=== PATIENT | female | born 1950 | race Caucasian/White ===

== ENCOUNTER → 2017-06-08 | Outpatient (CLI) | payer MEDICARE ==
[~2017-06-08] MED LIST: ASPIR 8181 MG PO; ATELVIA35 MG PO; AZOR 5-40 MG T1 EACH PO; CENTRUM SILVER1 EAC1 PO; CYMBALTA60 MG PO; DICYCLOMINE HCL10 MG PO; DICYCLOMINE HCL20 MG PO; FLORASTOR250 MG PO; HYDROCODON-ACE1 EA12 PO; KEFLEX500 MG PO; LEVOTHYROXINE175 MCG PO; LORAZEPAM0.5 MG PO; METOCLOPRAMIDE10 MG PO; NEXIUM40 MG PO; NORCO 7.5-3251 EACH PO; PANTOPRAZOLE SO40 MG PO; PHENERGAN25 MG/1 ML PO; PRAVASTATIN SOD40 MG PO; PREMARIN0.625 MG PO; REGLAN10 MG PO; ROPINIROLE HC0.25 MG PO; SYNTHROID125 MCG PO; SYNTHROID88 MCG PO; VANCOCIN HCL250 MG PO
--- NOTE | 2017-06-08 16:40 | Diagnostic Imaging Report ---
PROCEDURE:US RETROPERITONEAL ( KIDNEY ). COMPARISON:CT abdomen and pelvis 02/24/2016. INDICATIONS:Cyst Of Kidney TECHNIQUE: Page-scale and color sonographic images of the bilateral kidneys and bladder where obtained in transverse and longitudinal planes. FINDINGS: RIGHT KIDNEY: 8.6 x 5.0 x 5.6 cm, cortex 2.2 cm Cysts: None Solid masses: None Stones: None Hydronephrosis: None Echogenicity: None. LEFT KIDNEY: 9.5 x 5.0 x 4.3 cm, cortex 1.8 cm Cysts: None Solid masses: None Stones: None Hydronephrosis: None Echogenicity: None. Bladder: Normal. CONCLUSION: Normal kidneys. No cysts identified. Dictated by: Arturo Rutledge M.D. on 06/08/2017 at 16:48 Electronically approved by: Arturo Rutledge M.D. on 06/08/2017 at 16:48
== END ==
LOC: US 15:53
PROVIDERS: ATTEND Urology
DX: N28.1 Cyst of kidney, acquired (principal)
CPT/HCPCS: 76770

== ENCOUNTER 2018-12-03 13:47 | Emergency (ER) | payer MEDICARE ==
[~2018-12-03] VITALS: Ht 152.4 cm; Wt 65.3 kg
--- OUTSIDE RECORDS SUMMARY | 2018-12-03 13:53 | XMS REPORT | Summary of Care ---
Author Author Kiya Walker M.A. Unknown Address [facility] Phone Unavailable Care Team Providers Care Behavioral Technician Name Role Phone SCOTT GAYTAN M.D. 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, right (733.82, S82.041K) Status: Active Closed displaced comminuted fracture of right patella, initial encounter (822.0, S82.041A) Status: Active Medications Name Dates Details Medications not documented Allergies and Adverse Reactions Name Dates Details Allergy history not documented Status: Procedures Procedure Dates Details [U] XRAY KNEE 1 OR 2 VWS RIGHT [id number] Date: 15-Sep-2018 Immunization Name Dates Details Immunizations not documented Social History Name Dates Details Unknown if ever smoked Vital Signs Date Test Result Details No Known Vitals to report Results Date Description Value Details Results not documented Plan of Care Name Dates Details Planned Observations Planned Goals not documented Planned Encounters Appointment; SCOTT GAYTAN M.D. On: 20-Dec-2018 11:15 Interventions Provided Labs/Procedures/Imaging* [U] XRAY KNEE 1 OR 2 VWS RIGHT [id number]; To Be Done: 20 Sep 2018 Supplies* Handicap Parking; To Be Done: 20 Sep 2018 Instructions Name Dates Details Instructions not documented Encounters Appointment; SCOTT GAYTAN M.D. Encounter Diagnosis: Problem not documented On: 16-Nov-2017 9:30 Appointment; SCOTT GAYTAN M.D. Encounter Diagnosis: Problem not documented On: 21-Nov-2017 7:00 Appointment; SCOTT GAYTAN M.D. Encounter Diagnosis: Problem not documented On: 05-Dec-2017 9:00 Appointment; SCOTT GAYTAN M.D. Encounter Diagnosis: Problem not documented On: 21-Dec-2017 12:15 Appointment; SCOTT GAYTAN M.D. Encounter Diagnosis: Problem not documented On: 28-Dec-2017 12:30 Appointment; SCOTT GAYTAN M.D. Encounter Diagnosis: Problem not documented On: 11-Jan-2018 10:00 Appointment; SCOTT GAYTAN M.D. Encounter Diagnosis: Problem not documented On: 25-Jan-2018 12:45 Appointment; SCOTT GAYTAN M.D. Encounter Diagnosis: Problem not documented On: 08-Feb-2018 12:45 Appointment; SCOTT GAYTAN M.D. Encounter Diagnosis: Problem not documented On: 08-Mar-2018 11:30 Appointment; SCOTT GAYTAN M.D. Encounter Diagnosis: Problem not documented On: 19-Apr-2018 11:30 Appointment; SCOTT GAYTAN M.D. Encounter Diagnosis: Problem not documented On: 20-Jun-2018 11:15 Appointment; SCOTT GAYTAN M.D. Encounter Diagnosis: Problem not documented On: 20-Sep-2018 11:15
--- OUTSIDE RECORDS SUMMARY | 2018-12-03 13:53 | XMS REPORT ---
Author Author [facility] Address Unknown Phone Unavailable Care Team Providers Care Control Clerk Auditing Name Role Phone MARIA D RITTER Unavailable Unavailable Payers Payer Name Policy Type Policy Number Effective Date Expiration Date Problems This patient has no known problems. Allergies, Adverse Reactions, Alerts Allergy Name Allergy Type Status Severity Reaction(s) Onset Date Inactive Date Treating Clinician Comments cefazolin DA Active 2017-10-01 00:00:00 iodine DA Active SV 2017-09-27 00:00:00 codeine DA Active SV 2017-09-27 00:00:00 metronidazole DA Active SV 2017-09-27 00:00:00 levofloxacin DA Active SV 2017-09-27 00:00:00 Medications This patient has no known medications. Results Test Description Test Time Test Comments Text Results Atomic Results Result Comments US RENAL RETROPERITONEAL COMP [place] [address] Patient Name: GIL VICENTE MR #: [id number] : 1950 Age/Sex: 67/F Req #: [id number] Adm Physician: Ordered by: MARIA D RITTER MD Report #: [id number] Location: US Room/Bed: Procedure: [id number] US/US RENAL RETROPERITONEAL COMP Exam Date: 06/08/17 Exam Time: 1614 REPORT STATUS: Signed PROCEDURE: US RETROPERITONEAL ( KIDNEY ). COMPARISON: CT abdomen and pelvis 02/24/2016. INDICATIONS: Cyst Of Kidney TECHNIQUE: Page-scale and color sonographic images of the bilateral kidneys and bladder where obtained in transverse and longitudinal planes. FINDINGS: RIGHT KIDNEY: 8.6 x 5.0 x 5.6 cm, cortex 2.2 cm Cysts: None Solid masses: None Stones: None Hydronephrosis: None Echogenicity: None. LEFT KIDNEY: 9.5 x 5.0 x 4.3 cm, cortex 1.8 cm Cysts: None Solid masses: None Stones: None Hydronephrosis: None Echogenicity: None. Bladder: Normal. CONCLUSION: Normal kidneys. No cysts identified. Dictated by: Hemant Gonzalez M.D. on 06/08/2017 at 16:48 Electronically approved by: Hemant Gonzalez M.D. on 06/08/2017 at 16:48 Dictated By: HEMANT GONZALEZ MD [id number] Transcribed By: EMILIANO on 06/08/17 [id number] COPY TO: MARIA D RITTER MD
[2018-12-03 15:04] VITALS: BP 135/73
== END 2018-12-03 15:16 | disposition home or self-care (01) ==
LOC: ER 13:47
DX: L03.115 Cellulitis of right lower limb (principal); S40.812A Abrasion of left upper arm, initial encounter; S40.811A Abrasion of right upper arm, initial encounter; S50.812A Abrasion of left forearm, initial encounter; S50.811A Abrasion of right forearm, initial encounter; S80.812A Abrasion, left lower leg, initial encounter; X58.XXXA Exposure to other specified factors, initial encounter; Y93.K9 Activity, other involving animal care; Y92.008 Other place in unspecified non-institutional (private) residence as the place of occurrence of the external cause
CPT/HCPCS: 99282

== ENCOUNTER 2019-01-03 21:09 | Inpatient (IN) | payer MEDICARE, OTHER ==
[~2019-01-03] VITALS: Ht 157.5 cm; Wt 62.6 kg
--- OUTSIDE RECORDS SUMMARY | 2019-01-03 21:14 | XMS REPORT | Continuity of Care Document ---
Author Author [facility] Address Unknown Phone Unavailable Care Team Providers Care Link Trainer Maintenance Worker Name Role Phone [facility] Information Exchange Unavailable Unavailable Problems Problem Status Onset Date Classification Date Reported Comments Source Colitis Active 06/01/2014 Problem 12/03/2018 [facility] Vomiting Active 06/01/2014 Problem 12/03/2018 [facility] Abdominal pain Active Problem 12/03/2018 [facility] Diarrhea Active Problem 12/03/2018 [facility] Renal insufficiency Active Problem 12/03/2018 [facility] Medications Medication Details Route Status Patient Instructions Ordering Provider Order Date Source Metoclopramide Hcl (Reglan) 10 Mg Tablet, 10 Mg Oral 5 Times Daily Active 05/20/2016 [facility] Dicyclomine Hcl 10 Mg Capsule, 10 Mg Oral Every 6 Hours Active 10/01/2015 [facility] Levothyroxine Sodium (Synthroid) 125 Mcg Tab, 125 Mcg Oral Today At 6:30AM Active 10/01/2015 [facility] Multivitamin W-Minerals/Lutein (Centrum Silver Tablet) 1 Each Tablet, Oral Daily Active 10/01/2015 [facility] Aspirin (Aspir 81) 81 Mg Tablet., 81 Mg Oral Daily Active 09/08/2015 [facility] Dicyclomine Hcl 20 Mg Tablet, 20 Mg Oral Four Times Daily Active 09/08/2015 [facility] Esomeprazole Magnesium (Nexium) 40 Mg Capsule., 40 Mg Oral Twice A Day Active 09/08/2015 [facility] Levothyroxine Sodium 175 Mcg Tablet, 175 Mcg Oral Daily Active 09/08/2015 [facility] Promethazine Hcl (Phenergan) 25 Mg/1 Ml Ampul Every 6 Hours as needed for Po Active Zabala 06/06/2014 [facility] Metoclopramide Hcl 10 Mg Tablet, 10 Mg Oral Before Meals And At Bedtime for Abdominal Pain Active Zabala 06/06/2014 [facility] Vancomycin Hcl (Vancocin Hcl) 250 Mg Capsule, 250 Mg Oral Four Times Daily Active Zabala 06/06/2014 [facility] Cephalexin Monohydrate (Keflex) 500 Mg Capsule, 500 Mg Oral Three Times A Day Active 05/31/2014 [facility] Hydrocodone Bit/Acetaminophen (Hydrocodon-Acetaminoph 7.5-325) 1 Each Tablet, 1 Tab Oral Every 4 Hours as needed for Pain Active 05/31/2014 [facility] Levothyroxine Sodium (Synthroid) 125 Mcg Tab, 125 Mcg Oral Mon-Sat Active 05/31/2014 [facility] Unknown , Active 07/12/2013 [facility] Amlodipine Bes/Olmesartan Med (Vernon 5-40 Mg Tablet) 1 Each Tablet Bedtime Active [facility] Dicyclomine Hcl 20 Mg Tablet Every 6 Hours Active [facility] Duloxetine Hcl (Cymbalta) 60 Mg Capsule.dr Deluca Active [facility] Estrogens Conjugated (Premarin) 0.625 Mg Tab Daily Active [facility] Hydrocodone Bit/Acetaminophen (Marshall 7.5-325 Tablet) 1 Each Tablet Every 6 Hours Active [facility] Levothyroxine Sodium (Synthroid) 88 Mcg Tablet Daily Active [facility] Lorazepam 0.5 Mg Tablet Every 6 Hours Active [facility] Pantoprazole Sodium (Protonix) 40 Mg Tablet. Twice A Day Active [facility] Pravastatin Sodium 40 Mg Tablet Daily Active [facility] Risedronate Sodium (Atelvia) 35 Mg Tablet.dr Park Active [facility] Ropinirole Hcl 0.25 Mg Tablet Twice A Day Active [facility] Saccharomyces Boulardii (Florastor) 250 Mg Capsule Daily Active [facility] Allergies, Adverse Reactions, Alerts Substance Category Reaction Severity Reaction type Status Date Reported Comments Source iodine HIVES Unknown Allergy to Substance Active 05/19/2016 [facility] Triazolam HIVES Unknown Allergy to Substance Active 05/19/2016 [facility] Codeine HIVES Mild Allergy to Substance Active 05/19/2016 [facility] Metronidazole HIVES Unknown Allergy to Substance Active 05/19/2016 [facility] Levofloxacin HIVES Severe Allergy to Substance Active 05/19/2016 [facility] Immunizations No Data Provided for This Section Results No Data Provided for This Section Pathology Reports No Data Provided for This Section Diagnostic Reports No Data Provided for This Section Consultation Notes No Data Provided for This Section Discharge Summaries No Data Provided for This Section History and Physicals No Data Provided for This Section Vital Signs No Data Provided for This Section Encounters Location Location Details Encounter Type Encounter Number Reason For Visit Attending Provider ADM Date DC Date Status Source Departed Emergency Room [id number] HERMINIO SWANSON MD 12/03/2018 12/03/2018 [facility] Procedures No Data Provided for This Section Assessment and Plan No Data Provided for This Section Plan of Care Plan of Care Date Source Discharge Date 12/03/18 3:16pm Disposition HOME, SELF-CARE Condition at Discharge Stable Instructions/Education Provided Abrasion Cellulitis Forms Provided Work/School Excuse Prescriptions See Medication Section Referrals CEDRICK ZABALA MD Address: [address] [place] [id number] Additional Instructions/Education 1- Keep all wounds clean and dry 2- May place antibiotic ointment (OTC) to wounds 2 times a day- do not cover 3- Take medication as directed 4- Follow up with Dr Burkett tomorrow 5- Return for any concerns 12/03/2018 [facility] Social History Social History Date Source Social History Problem Response Recorded Date/Time Onset Date Status Hx Psychiatric Problems Yes 06/01/2014 8:36am Not Applicable Not Applicable Hx Eating Disorder No 06/01/2014 8:36am Not Applicable Not Applicable Hx Substance Use Disorder No 06/01/2014 8:36am Not Applicable Not Applicable Hx Depression Yes 06/01/2014 8:36am Not Applicable Not Applicable Hx Alcohol Use No 06/01/2014 8:36am Not Applicable Not Applicable Hx Substance Use Treatment No 06/01/2014 8:36am Not Applicable Not Applicable Hx Physical Abuse No 06/01/2014 8:36am Not Applicable Not Applicable 12/03/2018 [facility] Family History No Data Provided for This Section Advance Directives Order Name Results Value Date Source Advance Directives Advance Directives Directive Response Recorded Date/Time Does the patient have an advance directive? Yes 06/08/17 3:53pm If yes, is advance directive on file with [facility]? No 06/01/14 8:36am If not on file with [facility] will patient provide a copy? Yes 06/08/17 3:53pm Did patient receive Notice of Privacy Practices? Yes 07/13/10 8:01am Did patient receive patient rights and responsibilities? Yes 07/13/10 8:01am 12/03/2018 [facility] Functional Status No Data Provided for This Section
--- OUTSIDE RECORDS SUMMARY | 2019-01-03 21:14 | XMS REPORT | Summary of Care ---
Author Beatrice Tsang Organization Unknown Address [facility] Phone Unavailable Care Team Providers Care Managed Care Liaison Name Role Phone SCOTT GAYTAN M.D. Unavailable [...] XRAY KNEE 1 OR 2 VWS RIGHT [id number] Date: 21-Dec-2018 Immunization Name Dates Details Immunizations not documented Social History Name Dates Details Unknown if ever smoked Vital Signs Date Test Result Details No Known Vitals to report Results Date Description Value Details Results not documented Plan of Care Name Dates Details Planned Observations Planned Goals not documented Planned Encounters Appointment; SCOTT GAYTAN M.D. On: 27-Dec-2018 13:30 Interventions Provided Labs/Procedures/Imaging* [U] XRAY KNEE 1 OR 2 VWS RIGHT [id number]; To Be Done: 27 Dec 2018 Instructions Name Dates Details Instructions not [...] Diagnosis: Problem not documented On: 20-Sep-2018 11:15 Appointment; SCOTT GAYTAN M.D. Encounter Diagnosis: Problem not documented On: 27-Dec-2018 13:30
[2019-01-03] MEDS ORDERED: SODIUM CHLORIDE 0.9% 1000ML 1,000 ML IV STA (21:45)
[2019-01-03] MEDS ORDERED: ONDANSETRON HCL INJ 2MG/ML 2ML 2 MG/ML VIAL IV PRN (21:45)
--- NOTE | 2019-01-03 22:50 | Diagnostic Imaging Report ---
EXAMINATION: Head CT without contrast. HISTORY:Altered mental status, fall, dizziness. COMPARISON:Report of CT brain from 11/19/2010, prior images not available for comparison at the time of interpretation. TECHNIQUE: Multidetector axial images were obtained from the foramen magnum to the vertex without contrast. The images were reconstructed using brain and bone algorithms. Thin section brain images were reformatted into coronal and sagittal planes. Dose modulation, iterative reconstruction, and/or weight based adjustment of the mA/kV was utilized to reduce the radiation dose to as low as reasonably achievable. Intravenous contrast: None IMAGE QUALITY: Suboptimal evaluation particularly at the level of skull base and posterior fossa structures due to streak artifacts. FINDINGS: Skull/scalp: No lytic or blastic. lesions. No surgical changes. Parenchyma: Nonspecific few, scattered supratentorial white matter hypodensity are likely related to small vessel ischemic changes. No acute hemorrhage, mass or acute major vascular territorial infarct. Arteries: No density suggestive of thrombosis. Dural sinuses: No abnormal density suggestive of thrombosis. Ventricles: No hydrocephalus or displacement. Extra-axial spaces: No abnormal density. Brain volume: Normal for age. Craniocervical junction: No mass, Chiari malformation, or basilar invagination. Sella: No mass. Paranasal/mastoid sinuses: Imaged portions unremarkable. IMPRESSION: No acute intracranial abnormality. Mild supratentorial white matter microvascular ischemic changes. Signed by: Dr. Stephanie Camargo M.D. on 01/03/2019 10:47 PM
[2019-01-03 22:52] LABS: BASOPHILS # (AUTO) 0.1 (0.0-0.1); BASOPHILS % 0.6 % (0.0-1.0); EOSINOPHILS # (AUTO) 0.1 (0.0-0.4); EOSINOPHILS % 1.3 % (0.0-6.0); HEMATOCRIT 34.1 % (34.2-44.1); HEMOGLOBIN 11.6 g/dL (12.0-16.0); LYMPHOCYTES # (AUTO) 1.9 (1.0-3.2); LYMPHOCYTES % 19.1 % (18.0-39.1); MEAN CORPUSCULAR HEMOGLOBIN 31.4 pg (28-32); MEAN CORPUSCULAR VOLUME 92.4 fL (81-99); MONOCYTES # (AUTO) 0.8 (0.2-0.8); MONOCYTES % 8.5 % (4.4-11.3); NEUTROPHILS # (AUTO) 6.9 (2.1-6.9); NEUTROPHILS % 70.2 % (38.7-80.0); PLATELET COUNT 194 x10e3/uL (140-360); RED BLOOD COUNT 3.69 x10e6/uL (3.6-5.1)
[2019-01-03 23:19] LABS: ALBUMIN 3.9 g/dL (3.5-5.0); ALBUMIN/GLOBULIN RATIO 1.3 (0.8-2.0); ANION GAP 18.7 mmol/L (8-16); CALCIUM 9.4 mg/dL (8.4-10.2); CREATININE, SERUM 3.06 mg/dL (0.57-1.11); POTASSIUM 3.7 mmol/L (3.5-5.1)
[2019-01-03 23:23] LABS: BILIRUBIN,URINE NEGATIVE (NEGATIVE); CLARITY,URINE CLEAR (CLEAR); COLOR,URINE YELLOW (YELLOW); KETONES,URINE NEGATIVE (NEGATIVE); LEUKOCYTE ESTERASE ,URINE NEGATIVE (NEGATIVE); NITRITE,URINE NEGATIVE (NEGATIVE); PROTEIN,URINE DIPSTICK NEGATIVE (NEGATIVE); URINE UROBILINOGEN 0.2 mg/dL (0.2 - 1)
[2019-01-03 23:25] LABS: CREATINE KINASE MB 12.4 ng/mL (0-5.0)
[2019-01-03 23:37] LABS: BACTERIA,URINE FEW /HPF; RBC,URINE 0-5 /HPF (0-5)
[2019-01-03 23:38] LABS: EPITHELIAL CELLS,URINE FEW /LPF
[2019-01-03 23:39] LABS: MUCUS,URINE FEW (RARE)
[2019-01-04] MEDS ORDERED: SODIUM CHLORIDE 0.9% 1000ML 1,000 ML IV SCH (00:04)
[2019-01-04] MEDS ORDERED: CLONIDINE HCL 0.1 MG TAB PO PRN (00:15)
[2019-01-04] MEDS ORDERED: HYDRALAZINE HCL 20 MG/ML VIAL IV PRN (00:15)
[2019-01-04] MEDS ORDERED: ACETAMINOPHEN 325 MG TAB PO PRN (00:15)
--- NOTE | 2019-01-04 00:28 | Diagnostic Imaging Report ---
EXAMINATION: CHEST SINGLE (PORTABLE) INDICATION: Chest pain COMPARISON: None FINDINGS: AP view TUBES and LINES: None. LUNGS: Right hemidiaphragm eventration. Bibasilar opacities are likely atelectasis. PLEURA: No pleural effusion or pneumothorax. HEART AND MEDIASTINUM: The cardiomediastinal silhouette is unremarkable. BONES AND SOFT TISSUES: No acute osseous lesion. Soft tissues are unremarkable. UPPER ABDOMEN: No free air under the diaphragm. IMPRESSION: No acute thoracic abnormality. Normal heart size. Right hemidiaphragm eventration and bibasilar atelectasis. Signed by: Lazaro Marsh DO on 01/04/2019 12:24 AM
[2019-01-04] MEDS: LACTATED RINGER'S 1,000 ML IV SCH ×4 (00:30→23:12)
--- OUTSIDE RECORDS SUMMARY | 2019-01-04 00:51 | XMS REPORT | Continuity of Care Document ---
Author Author [facility] [employer] [facility] Address Unknown Phone Unavailable Care Team Providers Care Network Planner Name Role Phone [facility] Information Exchange Unavailable Unavailable Problems Problem Status Onset Date Classification Date Reported Comments Source Colitis Active 06/01/2014 Problem 12/03/2018 [facility] Vomiting Active 06/01/2014 Problem 12/03/2018 [facility] Abdominal pain Active Problem 12/03/2018 [facility] Diarrhea Active Problem 12/03/2018 [facility] Renal insufficiency Active Problem 12/03/2018 [facility] Medications Medication Details Route Status Patient Instructions Ordering Provider Order Date Source Metoclopramide Hcl (Reglan) 10 Mg Tablet, 10 Mg Oral 5 Times Daily Active 05/20/2016 [facility] Dicyclomine Hcl 10 Mg Capsule, 10 Mg Oral Every 6 Hours Active 10/01/2015 [facility] Levothyroxine Sodium (Synthroid) 125 Mcg Tab, 125 Mcg Oral Today At 6:30AM Active 10/01/2015 [facility] Multivitamin W-Minerals/Lutein (Centrum Silver Tablet) 1 Each Tablet, Oral Daily Active 10/01/2015 [facility] Aspirin (Aspir 81) 81 Mg Tablet., 81 Mg Oral Daily Active 09/08/2015 [facility] Dicyclomine Hcl 20 Mg Tablet, 20 Mg Oral Four Times Daily Active 09/08/2015 [facility] Esomeprazole Magnesium (Nexium) 40 Mg Capsule., 40 Mg Oral Twice A Day Active 09/08/2015 [facility] Levothyroxine Sodium 175 Mcg Tablet, 175 Mcg Oral Daily Active 09/08/2015 [facility] Promethazine Hcl (Phenergan) 25 Mg/1 Ml Ampul Every 6 Hours as needed for Po Active Zabala 06/06/2014 [facility] Metoclopramide Hcl 10 Mg Tablet, 10 Mg Oral Before Meals And At Bedtime for Abdominal Pain Active Zabala 06/06/2014 [facility] Vancomycin Hcl (Vancocin Hcl) 250 Mg Capsule, 250 Mg Oral Four Times Daily Active Zabala 06/06/2014 [facility] Cephalexin Monohydrate (Keflex) 500 Mg Capsule, 500 Mg Oral Three Times A Day Active 05/31/2014 [facility] Hydrocodone Bit/Acetaminophen (Hydrocodon-Acetaminoph 7.5-325) 1 Each Tablet, 1 Tab Oral Every 4 Hours as needed for Pain Active 05/31/2014 [facility] Levothyroxine Sodium (Synthroid) 125 Mcg Tab, 125 Mcg Oral Mon-Sat Active 05/31/2014 [facility] Unknown , Active 07/12/2013 [facility] Amlodipine Bes/Olmesartan Med (Vernon 5-40 Mg Tablet) 1 Each Tablet Bedtime Active [facility] Dicyclomine Hcl 20 Mg Tablet Every 6 Hours Active [facility] Duloxetine Hcl (Cymbalta) 60 Mg Capsule.dr Deluca Active [facility] Estrogens Conjugated (Premarin) 0.625 Mg Tab Daily Active [facility] Hydrocodone Bit/Acetaminophen (Jackson 7.5-325 Tablet) 1 Each Tablet Every 6 Hours Active [facility] Levothyroxine Sodium (Synthroid) 88 Mcg Tablet Daily Active [facility] Lorazepam 0.5 Mg Tablet Every 6 Hours Active [facility] Pantoprazole Sodium (Protonix) 40 Mg Tablet. Twice A Day Active [facility] Pravastatin Sodium 40 Mg Tablet Daily Active [facility] Risedronate Sodium (Atelvia) 35 Mg Tablet.dr Park Active [facility] Ropinirole Hcl 0.25 Mg Tablet Twice A Day Active [facility] Saccharomyces Boulardii (Florastor) 250 Mg Capsule Daily Active [facility] Allergies, Adverse Reactions, Alerts Substance Category Reaction Severity Reaction type Status Date Reported Comments Source iodine HIVES Unknown Allergy to Substance Active 05/19/2016 [facility] Triazolam HIVES Unknown Allergy to Substance Active 05/19/2016 [facility] Codeine HIVES Mild Allergy to Substance Active 05/19/2016 [facility] Metronidazole HIVES Unknown Allergy to Substance Active 05/19/2016 [facility] Levofloxacin HIVES Severe Allergy to Substance Active 05/19/2016 [facility] Immunizations No Data Provided for This Section [...] DC Date Status Source Departed Emergency Room [id number] HERMINIO SWANSON MD 12/03/2018 12/03/2018 [facility] Procedures No Data Provided for This Section Assessment and Plan No Data Provided for This Section Plan of Care Plan of Care Date Source Discharge Date 12/03/18 3:16pm Disposition HOME, SELF-CARE Condition at Discharge Stable Instructions/Education Provided Abrasion Cellulitis Forms Provided Work/School Excuse Prescriptions See Medication Section Referrals CEDRICK ZABALA MD Address: [address] [place] [address] Additional Instructions/Education 1- Keep all wounds clean and dry 2- May place antibiotic ointment (OTC) to wounds 2 times a day- do not cover 3- Take medication as directed 4- Follow up with Dr Burkett tomorrow 5- Return for any concerns 12/03/2018 [facility] Social History Social History Date Source Social [...] 06/01/2014 8:36am Not Applicable Not Applicable 12/03/2018 [facility] Family History No Data Provided for This Section Advance Directives Order Name Results Value Date Source Advance Directives Advance Directives Directive Response Recorded Date/Time Does the patient have an advance directive? Yes 06/08/17 3:53pm If yes, is advance directive on file with [facility]? No 06/01/14 8:36am If not on file with [facility] will patient provide a copy? Yes 06/08/17 3:53pm Did patient receive Notice of Privacy Practices? Yes 07/13/10 8:01am Did patient receive patient rights and responsibilities? Yes 07/13/10 8:01am 12/03/2018 [facility] Functional Status No Data Provided for This Section
[2019-01-04] MEDS ORDERED: GABAPENTIN600 MG PO (01:10)
[2019-01-04] MEDS ORDERED: OXYCODONE HCL15 MG PO (01:11)
[2019-01-04] MEDS ORDERED: LEVOTHYROXINE100 MCG PO (01:12)
[2019-01-04] MEDS ORDERED: AZOR 5-20 MG T1 EACH PO (01:14)
[2019-01-04] MEDS ORDERED: OXYBUTYNIN CHLO10 MG PO (01:15)
[2019-01-04] MEDS ORDERED: PROMETHAZINE HC25 M1 PO (01:18)
[2019-01-04] MEDS ORDERED: CEFTRIAXONE SOD 1 GRAM/0.9% SOD CHL 50ML BAG IV ONE (02:15)
[2019-01-04] MEDS ORDERED: CEFTRIAXONE SOD 1 GM VIAL IV ONE (02:15)
[2019-01-04] MEDS ORDERED: SODIUM CHLORIDE 0.9% 1000ML 1,000 ML ONE (04:39)
[2019-01-04] MEDS ORDERED: SODIUM CHLORIDE 0.9% 1000ML 1,000 ML IV ONE (04:45)
[2019-01-04 06:42] LABS: CREATININE, SERUM 1.55 mg/dL (0.57-1.11)
--- NOTE | 2019-01-04 06:54 | NUR ---
report to Liz
--- NOTE | 2019-01-04 06:56 | NUR ---
PT C 6 BEAT RUN OF [facility]. DR CHAUDHRY INFORMED. PT RESTING QUIETLY IN BED NO DISTRESS NOTED. RESP EVEN AND UNLABORED ON 02 2L NC. DENIES CHEST PAIN.
[2019-01-04 07:07] LABS: CREATINE KINASE MB 7.1 ng/mL (0-5.0)
[2019-01-04] MEDS: FAMOTIDINE 20 MG/2 ML VIAL IV SCH ×2 (08:23→17:09)
[2019-01-04 15:51] VITALS: BP 127/60
[2019-01-04 15:52] VITALS: BP 127/60
[2019-01-04] MEDS ORDERED: DICYCLOMINE HCL 20 MG TAB PO PRN (18:30)
[2019-01-04] MEDS ORDERED: OXYCODONE HCL IR 15 MG TAB PO PRN (18:30)
[2019-01-04] MEDS ORDERED: LORAZEPAM 0.5 MG TAB PO PRN (18:30)
[2019-01-04] MEDS ORDERED: PROMETHAZINE HCL 25 MG TAB PO PRN (18:30)
[2019-01-04] MEDS ORDERED: RISEDRONATE SODIUM 35 MG PO SCH (18:45)
[2019-01-04 20:00] VITALS: BP 159/90
[2019-01-04] MEDS ORDERED: OXYCODONE HCL IR 5 MG TAB PO PRN (20:30)
[2019-01-04] MEDS ORDERED: NON-FORMULARY MEDICATION (Amlodipine Bes/Olmesartan Med (Azor 5-20 Mg Tablet) 1 TAB) PO SCH (21:00)
[2019-01-04] MEDS ORDERED: NON-FORMULARY MEDICATION (Gabapentin 600 MG) PO SCH (21:00)
[2019-01-04] MEDS: OLMESARTAN 20 MG TAB PO SCH (21:29)
[2019-01-04] MEDS: AMLODIPINE BESYLATE 5 MG TAB PO SCH (21:29)
[2019-01-04] MEDS: GABAPENTIN 300 MG CAP PO SCH (21:30)
[2019-01-04] MEDS: PRAVASTATIN 20 MG TAB PO SCH (21:30)
[2019-01-04 22:37] VITALS: BP 159/90
[2019-01-05] VITALS (8 sets, daily range): BP systolic 123–165; BP diastolic 69–88
[2019-01-05] MEDS: LEVOTHYROXINE SODIUM 100 MCG TAB PO SCH (05:16)
[2019-01-05] MEDS: LACTATED RINGER'S 1,000 ML IV SCH ×2 (05:16→14:05)
[2019-01-05 05:25] LABS: BASOPHILS # (AUTO) 0.1 (0.0-0.1); BASOPHILS % 0.9 % (0.0-1.0); EOSINOPHILS # (AUTO) 0.2 (0.0-0.4); EOSINOPHILS % 2.9 % (0.0-6.0); HEMATOCRIT 29.4 % (34.2-44.1); HEMOGLOBIN 9.9 g/dL (12.0-16.0); LYMPHOCYTES # (AUTO) 1.3 (1.0-3.2); LYMPHOCYTES % 22.5 % (18.0-39.1); MEAN CORPUSCULAR HEMOGLOBIN 30.8 pg (28-32); MEAN CORPUSCULAR HGB CONC 33.7 g/dL (31-35); MEAN CORPUSCULAR VOLUME 91.6 fL (81-99); MONOCYTES # (AUTO) 0.7 (0.2-0.8); MONOCYTES % 11.9 % (4.4-11.3); NEUTROPHILS # (AUTO) 3.6 (2.1-6.9); NEUTROPHILS % 61.5 % (38.7-80.0); PLATELET COUNT 158 x10e3/uL (140-360); RED BLOOD COUNT 3.21 x10e6/uL (3.6-5.1)
[2019-01-05 05:51] LABS: ANION GAP 11.7 mmol/L (8-16); BLOOD UREA NITROGEN 10 mg/dL (7-26); BUN/CREATININE RATIO 17 (6-25); CALCIUM 8.5 mg/dL (8.4-10.2); CARBON DIOXIDE 25 mmol/L (22-29); CHLORIDE 109 mmol/L (98-107); CREATININE, SERUM 0.59 mg/dL (0.57-1.11); EST GLOMERULAR FILTRATION RATE > 60 ML/MIN (60-); GLUCOSE 104 mg/dL (74-118); POTASSIUM 3.7 mmol/L (3.5-5.1); SODIUM 142 mmol/L (136-145)
[2019-01-05] MEDS ORDERED: NON-FORMULARY MEDICATION (Duloxetine Hcl (Cymbalta) 60 MG) PO SCH (09:00)
[2019-01-05] MEDS ORDERED: NON-FORMULARY MEDICATION (Pravastatin Sodium 40 MG) PO SCH (09:00)
[2019-01-05] MEDS: SACCHAROMYCES BOULARDII 250 MG PO SCH (09:00)
[2019-01-05] MEDS: ROPINIROLE HCL 0.25 MG TAB PO SCH ×2 (09:04→17:29)
[2019-01-05] MEDS: PANTOPRAZOLE SOD 40 MG TABEC PO SCH ×2 (09:04→17:29)
[2019-01-05] MEDS: ESTROGENS CONJUGATED 0.625 MG TAB PO SCH (09:04)
[2019-01-05] MEDS: GABAPENTIN 300 MG CAP PO SCH ×4 (09:04→21:04)
[2019-01-05] MEDS: DULOXETINE HCL 30 MG DELAYED RELEASE PO SCH (09:04)
[2019-01-05] MEDS: FAMOTIDINE 20 MG/2 ML VIAL IV SCH ×2 (09:04→17:29)
[2019-01-05] MEDS: OXYBUTYNIN CHLORIDE 5 MG TAB PO SCH (09:04)
--- NOTE | 2019-01-05 18:55 | NUR ---
Got report from previous nurse. Call light within reach. Patient in bed.
[2019-01-05] MEDS: OLMESARTAN 20 MG TAB PO SCH (21:03)
[2019-01-05] MEDS: AMLODIPINE BESYLATE 5 MG TAB PO SCH (21:04)
[2019-01-05] MEDS: PRAVASTATIN 20 MG TAB PO SCH (21:04)
--- NOTE | 2019-01-05 23:48 | NUR ---
CALLED AND TALKED TO DR. SMALLS WHO IS COVERING FOR DR. Ashlyn RAMIREZ ABOUT PATIENT'S IV FLUIDS. NOTE WAS WRITTEN TO CALL AFTER 2 LITERS GIVEN TO PATIENT. DR. SMALLS ORDERED TO STOP FLUIDS AFTER HE WAS GIVEN THE PATIENT'S BUN, CREATININE, BP, PULSE, AND CREATININE.
[2019-01-06] VITALS: BP 138/85
[2019-01-06 04:00] VITALS: BP 161/83
[2019-01-06] MEDS: LEVOTHYROXINE SODIUM 100 MCG TAB PO SCH (06:26)
--- NOTE | 2019-01-06 06:57 | NUR ---
Gave report to oncoming nurse. Call light within reach. Patient in bed.
[2019-01-06 07:45] VITALS: BP 171/92
[2019-01-06 07:47] VITALS: BP 171/92
[2019-01-06] MEDS: GABAPENTIN 300 MG CAP PO SCH ×2 (07:57→13:49)
[2019-01-06] MEDS: OXYBUTYNIN CHLORIDE 5 MG TAB PO SCH (07:57)
[2019-01-06] MEDS: ROPINIROLE HCL 0.25 MG TAB PO SCH (07:57)
[2019-01-06] MEDS: PANTOPRAZOLE SOD 40 MG TABEC PO SCH (07:57)
[2019-01-06] MEDS: FAMOTIDINE 20 MG/2 ML VIAL IV SCH (07:57)
[2019-01-06] MEDS: SACCHAROMYCES BOULARDII 250 MG PO SCH (07:57)
[2019-01-06] MEDS: ESTROGENS CONJUGATED 0.625 MG TAB PO SCH (07:57)
[2019-01-06] MEDS: DULOXETINE HCL 30 MG DELAYED RELEASE PO SCH (07:57)
--- NOTE | 2019-01-06 11:07 | NUR ---
Dictated DC summary: [id number]
[2019-01-06 11:34] VITALS: BP 124/75
--- NOTE | 2019-01-06 11:53 | Discharge Summary ---
ADMIT DIAGNOSES: 1. Acute renal failure. 2. Hypertensive heart disease. 3. Rhabdomyolysis. 4. Altered mentation secondary to metabolic encephalopathy. DISCHARGE DIAGNOSES: 1. Rhabdomyolysis, resolving. 2. Acute renal failure, resolved. 3. Hypertensive heart disease. 4. Altered mentation secondary to metabolic encephalopathy, resolved. HOSPITAL COURSE: This is a 68-year-old white woman initially admitted to [facility] with diagnosis of altered mentation secondary to metabolic encephalopathy, acute renal failure, and rhabdomyolysis. The patient's acute renal failure abnormalities resolved with intravenous fluids. Once the patient's metabolic encephalopathy resolved, her altered mentation resolved also. Her hospitalization was unremarkable. CONDITION ON DISCHARGE: Stable. DISCHARGE MEDICATIONS: The patient was instructed to stop pravastatin until further notice because of her rhabdomyolysis. DISCHARGE MEDICATIONS: 1. Amlodipine/olmesartan 5/20 once daily. 2. Dicyclomine 20 mg q.6 hours p.r.n. abdominal cramping. 3. Duloxetine 60 mg daily. 4. Premarin 0.625 mg once daily. 5. Gabapentin 600 mg q.i.d. 6. Levothyroxine 100 mcg daily. 7. Lorazepam 0.5 mg every 6 hours p.r.n. anxiety. 8. Oxybutynin 10 mg daily. 9. Oxycodone 15 mg b.i.d. p.r.n. pain. 10. Pantoprazole 40 mg b.i.d. 11. Promethazine 25 mg every 6 hours p.r.n. nausea and vomiting. 12. Risedronate 35 mg once a week. 13. Ropinirole 0.5 mg b.i.d. 14. Florastor 250 mg once daily. FOLLOWUP: The patient is instructed to follow up with Dr. Ishan Zabala within 10 to 14 days. Once again, the patient was told to stop pravastatin until further notice. MD PETERSON Vinson/GLORIA /[id number]
[2019-01-06 12:06] LABS: BASOPHILS # (AUTO) 0.1 (0.0-0.1); BASOPHILS % 0.9 % (0.0-1.0); EOSINOPHILS # (AUTO) 0.2 (0.0-0.4); HEMOGLOBIN 11.5 g/dL (12.0-16.0); LYMPHOCYTES # (AUTO) 1.5 (1.0-3.2); LYMPHOCYTES % 26.8 % (18.0-39.1); MEAN CORPUSCULAR HEMOGLOBIN 31.5 pg (28-32); MEAN CORPUSCULAR HGB CONC 34.8 g/dL (31-35); MEAN CORPUSCULAR VOLUME 90.4 fL (81-99); MONOCYTES # (AUTO) 0.7 (0.2-0.8); MONOCYTES % 12.3 % (4.4-11.3); NEUTROPHILS # (AUTO) 3.1 (2.1-6.9); NEUTROPHILS % 55.6 % (38.7-80.0); PLATELET COUNT 188 x10e3/uL (140-360); RED BLOOD COUNT 3.65 x10e6/uL (3.6-5.1)
--- NOTE | 2019-01-06 12:22 | NUR ---
PT RECOMMENDS PLAN OF HOME WITH OUTPATIENT THERAPY TO FOLLOW. ASKED PT AGAIN ABOUT SNF AND SHE STATES SHE WOULD PREFER TO RETURN HOME.
[2019-01-06 12:24] LABS: ALANINE AMINOTRANSFERASE 16 IU/L (0-55); ALBUMIN 3.3 g/dL (3.5-5.0); ALBUMIN/GLOBULIN RATIO 1.2 (0.8-2.0); ALKALINE PHOSPHATASE 43 IU/L (40-150); ANION GAP 13.5 mmol/L (8-16); BLOOD UREA NITROGEN < 5 mg/dL (7-26); CALCIUM 9.2 mg/dL (8.4-10.2); CARBON DIOXIDE 27 mmol/L (22-29); CHLORIDE 104 mmol/L (98-107); CREATINE KINASE 112 IU/L (29-168); CREATININE, SERUM 0.68 mg/dL (0.57-1.11); EST GLOMERULAR FILTRATION RATE > 60 ML/MIN (60-); GLUCOSE 75 mg/dL (74-118); POTASSIUM 3.5 mmol/L (3.5-5.1); SODIUM 141 mmol/L (136-145)
[2019-01-06 12:25] LABS: BUN/CREATININE RATIO 7 (6-25)
[2019-01-11] MEDS ORDERED: RISEDRONATE 35 MG TAB PO SCH (06:30)
== END 2019-01-06 14:11 | disposition home or self-care (01) | DRG 682 ==
LOC: ER 21:09 → ERHOLD 01-04 00:48 → IMCU 01-04 15:12 → OBSVTOIN 01-05 09:31
DX: N17.9 Acute kidney failure, unspecified (principal); G93.41 Metabolic encephalopathy; M62.82 Rhabdomyolysis; I11.9 Hypertensive heart disease without heart failure; E86.0 Dehydration
CPT/HCPCS: 36415; 70450; 71045; 80048; 80053; 81001; 82550; 82553; 84484; 85025; 87086; 87493; 93005; 96374; 99284; G0378; J0696; J2405; J7030; J7121

== ENCOUNTER → 2019-07-13 | Day surgery (SDC) | payer MEDICARE ==
[2019-07-10 13:07] LABS: BASOPHILS # (AUTO) 0.1 (0.0-0.1); EOSINOPHILS # (AUTO) 0.1 (0.0-0.4); EOSINOPHILS % 0.8 % (0.0-6.0); HEMATOCRIT 39.2 % (34.2-44.1); HEMOGLOBIN 13.7 g/dL (12.0-16.0); LYMPHOCYTES % 26.4 % (18.0-39.1); MEAN CORPUSCULAR HEMOGLOBIN 31.1 pg (28-32); MEAN CORPUSCULAR HGB CONC 34.9 g/dL (31-35); MEAN CORPUSCULAR VOLUME 89.1 fL (81-99); MONOCYTES # (AUTO) 0.7 (0.2-0.8); MONOCYTES % 8.7 % (4.4-11.3); NEUTROPHILS # (AUTO) 4.8 (2.1-6.9); PLATELET COUNT 227 x10e3/uL (140-360); RED CELL DISTRIBUTION WIDTH 13.5 % (11.7-14.4)
--- NOTE | 2019-07-10 13:40 | Diagnostic Imaging Report ---
EXAMINATION: CHEST 2 VIEWS INDICATION: Pre-operative COMPARISON: Chest are graft 01/03/2019 FINDINGS: LINES/TUBES:None LUNGS:The lungs are hyperinflated. No focal consolidation or pulmonary edema. PLEURA:No pleural effusion or pneumothorax. MEDIASTINUM:The cardiomediastinal silhouette appears unchanged in size and shape. Atherosclerotic calcifications of the thoracic aorta. BONES/SOFT TISSUES:No acute osseous injury. ABDOMEN:No free air under the diaphragm. Status post cholecystectomy. IMPRESSION: Hyperinflated lungs. No focal pneumonia or pulmonary edema. Signed by: Le Denis MD on 07/10/2019 1:37 PM
[~2019-07-13] MED LIST changes: +ALBUTEROL/IPRATROPIUM 3 ML NEB ONE; +AZOR 5-20 MG T1 EACH PO; +BOTULINUM TOXIN TYPE A 100 UNIT VIAL IM ONE; +DEXAMETHASONE SOD PHOS INJ 4 MG/ML VIAL ONE; +GABAPENTIN600 MG PO; +GENTAMICIN 120MG/NS 100ML 100 ML ONE; +HAIR SKIN NAILS PO; +IBUPROFEN200 MG PO; +IOPAMIDOL 300MG/ML 50ML INFUS..BTL IV ONE; +LABETALOL HCL 0 ML ONE; +LEVOTHYROXINE100 MCG PO; +LIDOCAINE HCL 2% LOCAL INJ 5 ML SDV VIAL INJ ONE; +MECLIZINE HCL12.5 MG PO; +MYRBETRIQ50 MG PO; +ONDANSETRON HCL INJ 2MG/ML 2ML 2 MG/ML VIAL ONE; +OXYBUTYNIN CHLO10 MG PO; +OXYCODONE HCL15 MG PO; +PRAVASTATIN SOD80 MG PO; +PROMETHAZINE HC25 M1 PO; +PROPOFOL IV EMULSION 10 MG/ML 20 ML VIAL ONE; +SEVOFLURANE INHAL SOLN 250 ML PEN BTL ONE; +SUCRALFATE1 GM PO
--- OUTSIDE RECORDS SUMMARY | 2019-07-13 07:23 | XMS REPORT | Summary of Care ---
Author Author Kiya Walker M.A. Organization Unknown Address [facility] Phone Unavailable Care Team Providers Care Dining Room Captain Name Role Phone Kiya Walker M.A. 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, right (733.82, S82.041K) Status: Active Injury of right knee, initial encounter (959.7, S89.91XA) Status: Active Medications Name Dates Details Medications not documented Allergies and Adverse Reactions Name Dates Details Allergy history not documented Status: Procedures Procedure Dates Details Procedures not documented Immunization Name Dates Details Immunizations not documented Social History Name Dates Details Unknown if ever smoked Vital Signs Date Test Result Details No Known Vitals to report Results Date Description Value Details [id number] [U] XRAY KNEE 1 OR 2 VWS RIGHT [id number] XR KNEE 1 OR 2 VWS RIGHT Images acquired, not reported on this accession number. Plan of Care Name Dates Details Planned Observations Planned Goals not documented Planned Encounters Appointment; SCOTT GAYTAN M.D. On: 26-Sep-2019 13:15 Interventions Provided Supplies* Handicap Parking; To Be Done: 28 Mar 2019 Instructions Name Dates Details Instructions not documented [...] Diagnosis: Problem not documented On: 27-Dec-2018 13:30 Appointment; SCOTT GAYTAN M.D. Encounter Diagnosis: Problem not documented On: 28-Mar-2019 13:30
[2019-07-13 09:40] VITALS: BP 138/65
--- NOTE | 2019-07-16 15:53 | Operative Report ---
DATE OF PROCEDURE: 07/13/2019 SURGEON: Tobi Martino MD PREOPERATIVE DIAGNOSES: 1. Refractory urge incontinence. 2. Multiple chronic urinary tract infections. 3. Clinical signs and symptoms of interstitial cystitis. POSTOPERATIVE DIAGNOSES: 1. Refractory urge incontinence. 2. Multiple chronic urinary tract infections. 3. Clinical signs and symptoms of interstitial cystitis. PROCEDURES: 1. Cystourethroscopy with Botox injection (denervation). 2. Cystourethroscopy with hydrodistention (entirely separate procedure for clinical signs and symptoms of interstitial cystitis). 3. Cystourethroscopy with left ureteral catheterization and left retrograde pyelogram (separate procedure for multiple chronic urinary tract infections). 4. Cystoscopy with right ureteral catheterization and right retrograde pyelogram (separate procedure for multiple chronic urinary tract infections). 5. Supervision of fluoroscopy. 6. Interpretation of retrograde pyelography. ANESTHESIA: General. ESTIMATED BLOOD LOSS: Minimal. COMPLICATIONS: None. INDICATIONS FOR PROCEDURE: Ms. Rodriguez is a very pleasant 69-year-old female with a history of multiple chronic urinary tract infections and clinical symptoms of interstitial cystitis as well as refractory urge incontinence, which has failed three different medicines. The patient voiced understanding of the options, alternatives, risks, and benefits and elected to proceed with Botox injection, hydrodistention, bilateral retrograde pyelograms. She voiced understanding of the options, alternatives, the risks, and benefits and elected to proceed. PROCEDURE IN DETAIL: After informed consent was obtained, the patient was taken to the operative suite, placed supine on the operating table, underwent general anesthesia by Anesthesia Service, placed in dorsal lithotomy position, sterilely prepped and draped in standard fashion for cystoscopy. A 21-Peruvian cystoscope was inserted per urethra and normal urethra was noted. Panendoscopy of bladder revealed no tumors and no stones. Both ureteral orifices were in normal anatomic location and position and no efflux of urine. Hydrodistention was performed, revealed a capacity of 800 mL, no glomerulations, no Hunner's ulcers. The Botox injection performed per the termite treater's recommendation in a grid like pattern of the posterior wall. There was no bleeding noted. Bilateral retrograde pyelograms performed, which were normal. The bladder was then drained. The patient was awakened from anesthesia and transported to the recovery room in excellent condition. Supervision of fluoroscopy and interpretation of retrograde pyelography: I was present for the entire procedure and supervised fluoroscopy. There was no radiologist present. Attention was turned to the left and right ureteral orifices, which were catheterized with an 8-Peruvian cone-tipped catheter. In retrograde fashion, contrast was injected revealing delicate ureters, delicate pelvocaliceal systems, no evidence of filling defects. No evidence of hydronephrosis. IMPRESSION: Normal retrograde pyelograms. Tobi Martino MD ES/MODL /[id number] cc: Ishan Zabala MD
== END | disposition home or self-care (01) ==
LOC: OR 07:22
PROVIDERS: ATTEND Urology
DX: N39.41 Urge incontinence (principal); N30.10 Interstitial cystitis (chronic) without hematuria; N28.1 Cyst of kidney, acquired; N39.0 Urinary tract infection, site not specified; R35.1 Nocturia; I10 Essential (primary) hypertension; Z88.1 Allergy status to other antibiotic agents; Z88.5 Allergy status to narcotic agent; Z88.8 Allergy status to other drugs, medicaments and biological substances; Z91.048 Other nonmedicinal substance allergy status; E03.9 Hypothyroidism, unspecified; K21.9 Gastro-esophageal reflux disease without esophagitis; Z86.19 Personal history of other infectious and parasitic diseases; K44.9 Diaphragmatic hernia without obstruction or gangrene; E78.5 Hyperlipidemia, unspecified; G47.33 Obstructive sleep apnea (adult) (pediatric); F32.9 Major depressive disorder, single episode, unspecified; F41.9 Anxiety disorder, unspecified; Z01.810 Encounter for preprocedural cardiovascular examination; Z01.812 Encounter for preprocedural laboratory examination; Z01.811 Encounter for preprocedural respiratory examination
CPT/HCPCS: 36415; 52260; 52287; 52351; 71046; 74420; 85025; 93005; C1758; J0587; J1100; J1580; J2001; J2405; J2704; Q9967

== ENCOUNTER 2020-08-21 16:01 | Emergency (ER) | payer MEDICARE ==
[~2020-08-21] VITALS: Ht 154.9 cm; Wt 67.1 kg
[~2020-08-21 16:01] MED LIST changes: -ALBUTEROL/IPRATROPIUM 3 ML NEB ONE; -BOTULINUM TOXIN TYPE A 100 UNIT VIAL IM ONE; -DEXAMETHASONE SOD PHOS INJ 4 MG/ML VIAL ONE; -GENTAMICIN 120MG/NS 100ML 100 ML ONE; -IOPAMIDOL 300MG/ML 50ML INFUS..BTL IV ONE; -LABETALOL HCL 0 ML ONE; -LIDOCAINE HCL 2% LOCAL INJ 5 ML SDV VIAL INJ ONE; -ONDANSETRON HCL INJ 2MG/ML 2ML 2 MG/ML VIAL ONE; -PROPOFOL IV EMULSION 10 MG/ML 20 ML VIAL ONE; -SEVOFLURANE INHAL SOLN 250 ML PEN BTL ONE
[2020-08-21] MEDS ORDERED: BENADRYL25 M1 PO (16:23)
[2020-08-21] MEDS ORDERED: FAMOTIDINE20 MG PO (16:23)
[2020-08-21] MEDS ORDERED: CLINDAMYCIN HC150 MG PO (16:23)
[2020-08-21] MEDS ORDERED: PREDNISONE20 MG PO (16:23)
[2020-08-21] MEDS ORDERED: ACIDOPHILUS1 EAC1 PO (16:23)
[2020-08-21 16:31] LABS: BASOPHILS # (AUTO) 0.1 (0.0-0.1); BASOPHILS % 0.8 % (0.0-1.0); EOSINOPHILS # (AUTO) 0.1 (0.0-0.4); EOSINOPHILS % 0.6 % (0.0-6.0); HEMATOCRIT 42.7 % (34.2-44.1); HEMOGLOBIN 14.7 g/dL (12.0-16.0); LYMPHOCYTES # (AUTO) 1.3 (1.0-3.2); LYMPHOCYTES % 15.2 % (18.0-39.1); MEAN CORPUSCULAR HEMOGLOBIN 31.4 pg (28-32); MEAN CORPUSCULAR HGB CONC 34.4 g/dL (31-35); MEAN CORPUSCULAR VOLUME 91.2 fL (81-99); MONOCYTES # (AUTO) 0.9 (0.2-0.8); MONOCYTES % 9.8 % (4.4-11.3); NEUTROPHILS # (AUTO) 6.5 (2.1-6.9); NEUTROPHILS % 73.4 % (38.7-80.0); PLATELET COUNT 165 x10e3/uL (140-360); RED BLOOD COUNT 4.68 x10e6/uL (3.6-5.1); RED CELL DISTRIBUTION WIDTH 13.2 % (11.7-14.4)
[2020-08-21 16:47] LABS: ALBUMIN 3.8 g/dL (3.5-5.0); ALBUMIN/GLOBULIN RATIO 1.2 (0.8-2.0); ANION GAP 16.6 mmol/L (8-16); CALCIUM 9.2 mg/dL (8.4-10.2); CREATININE, SERUM 0.93 mg/dL (0.57-1.11); POTASSIUM 3.6 mmol/L (3.5-5.1)
[2020-08-21 17:49] VITALS: BP 158/89
== END 2020-08-21 17:56 | disposition home or self-care (01) ==
LOC: ER 16:19
DX: L23.9 Allergic contact dermatitis, unspecified cause (principal); L29.9 Pruritus, unspecified; I10 Essential (primary) hypertension; E78.5 Hyperlipidemia, unspecified; E03.9 Hypothyroidism, unspecified; K21.9 Gastro-esophageal reflux disease without esophagitis; D64.9 Anemia, unspecified
CPT/HCPCS: 36415; 80053; 85025; 99283

== ENCOUNTER → 2021-03-11 | Outpatient (CLI) | payer MEDICARE ==
[~2021-03-11] MED LIST changes: +ACIDOPHILUS1 EAC1 PO; +BENADRYL25 M1 PO; +CLINDAMYCIN HC150 MG PO; +FAMOTIDINE20 MG PO; +PREDNISONE20 MG PO
== END ==
LOC: RAD 12:07
DX: M25.511 Pain in right shoulder (principal); M79.621 Pain in right upper arm
CPT/HCPCS: 72050

== ENCOUNTER → 2021-06-05 | Outpatient (RCR) | payer MEDICARE | LOC: PT 05-21 15:03 | PROVIDERS: ATTEND Specialist | DX: M75.121 Complete rotator cuff tear or rupture of right shoulder, not specified as traumatic (principal) ==

== ENCOUNTER → 2021-07-06 | Outpatient (RCR) | payer MEDICARE | LOC: PT 06-08 09:38 | PROVIDERS: ATTEND Specialist | DX: M75.121 Complete rotator cuff tear or rupture of right shoulder, not specified as traumatic (principal) ==

== ENCOUNTER 2021-07-17 13:00 | Outpatient (RCR) | payer MEDICARE | END 2021-08-03 | LOC: PT 13:00 | PROVIDERS: ATTEND Specialist | DX: M75.121 Complete rotator cuff tear or rupture of right shoulder, not specified as traumatic (principal) | CPT/HCPCS: 97139 ==

== ENCOUNTER 2021-09-15 17:32 | Inpatient (IN) | payer MEDICARE ==
[~2021-09-15] VITALS: Ht 154.9 cm; Wt 67.1 kg
[2021-09-15] MEDS ORDERED: PIPERACILLIN/TAZOBACTAM 3.375 GM in SODIUM CHLORIDE 0.9% 50ML 50 ML IV ONE (18:00)
[2021-09-15] MEDS ORDERED: Vancomycin IV 1 GM in SODIUM CHLORIDE 0.9% 250ML 250 ML IV ONE (18:00)
[2021-09-15 18:43] LABS: BASOPHILS # (AUTO) 0.1 (0.0-0.1); BASOPHILS % 1.1 % (0.0-1.0); EOSINOPHILS # (AUTO) 0.1 (0.0-0.4); EOSINOPHILS % 1.3 % (0.0-6.0); HEMATOCRIT 35.8 % (34.2-44.1); HEMOGLOBIN 11.9 g/dL (12.0-16.0); LYMPHOCYTES # (AUTO) 1.3 (1.0-3.2); LYMPHOCYTES % 17.2 % (18.0-39.1); MEAN CORPUSCULAR HEMOGLOBIN 30.6 pg (28-32); MEAN CORPUSCULAR HGB CONC 33.2 g/dL (31-35); MONOCYTES # (AUTO) 0.8 (0.2-0.8); MONOCYTES % 11.1 % (4.4-11.3); NEUTROPHILS # (AUTO) 5.2 (2.1-6.9); PLATELET COUNT 209 x10e3/uL (140-360); RED BLOOD COUNT 3.89 x10e6/uL (3.6-5.1); RED CELL DISTRIBUTION WIDTH 13.9 % (11.7-14.4)
[2021-09-15 19:04] LABS: ALBUMIN 3.6 g/dL (3.5-5.0); ALBUMIN/GLOBULIN RATIO 1.1 (0.8-2.0); ANION GAP 14.3 mmol/L (8-16); CALCIUM 9.2 mg/dL (8.4-10.2); CREATININE, SERUM 1.06 mg/dL (0.57-1.11); POTASSIUM 4.3 mmol/L (3.5-5.1)
[2021-09-15] MEDS ORDERED: ONDANSETRON HCL INJ 2MG/ML 2ML 2 MG/ML VIAL IV PRN (19:15)
[2021-09-15 21:19] VITALS: BP 139/64
[2021-09-15 22:00] VITALS: BP 139/64
[2021-09-15] MEDS: ACETAMINOPHEN 325 MG TAB PO PRN (22:00)
[2021-09-16] VITALS (8 sets, daily range): BP systolic 125–185; BP diastolic 64–71
[2021-09-16] MEDS ORDERED: SODIUM CHLORIDE 0.9% 250ML 250 ML ONE (01:43)
[2021-09-16] MEDS: PIPERACILLIN/TAZOBACTAM 3.375 GM in SODIUM CHLORIDE 0.9% 50ML 50 ML IV SCH ×3 (01:45→17:03)
[2021-09-16] MEDS ORDERED: HYDROCODON-ACE1 EAC9 PO (02:51)
[2021-09-16] MEDS ORDERED: ASPIRIN81 MG PO (02:51)
[2021-09-16] MEDS ORDERED: CELEBREX200 MG PO (02:51)
[2021-09-16 05:00] LABS: BASOPHILS # (AUTO) 0.1 (0.0-0.1); BASOPHILS % 1.3 % (0.0-1.0); EOSINOPHILS # (AUTO) 0.2 (0.0-0.4); EOSINOPHILS % 3.1 % (0.0-6.0); HEMATOCRIT 32.5 % (34.2-44.1); LYMPHOCYTES # (AUTO) 1.2 (1.0-3.2); LYMPHOCYTES % 22.3 % (18.0-39.1); MEAN CORPUSCULAR HGB CONC 33.8 g/dL (31-35); MEAN CORPUSCULAR VOLUME 91.5 fL (81-99); MONOCYTES # (AUTO) 0.7 (0.2-0.8); MONOCYTES % 12.9 % (4.4-11.3); NEUTROPHILS # (AUTO) 3.3 (2.1-6.9); PLATELET COUNT 180 x10e3/uL (140-360); RED BLOOD COUNT 3.55 x10e6/uL (3.6-5.1); RED CELL DISTRIBUTION WIDTH 13.7 % (11.7-14.4)
[2021-09-16 05:26] LABS: ALBUMIN 3.2 g/dL (3.5-5.0); ALBUMIN/GLOBULIN RATIO 1.1 (0.8-2.0); ANION GAP 12.8 mmol/L (8-16); CALCIUM 8.6 mg/dL (8.4-10.2); CREATININE, SERUM 0.76 mg/dL (0.57-1.11); POTASSIUM 3.8 mmol/L (3.5-5.1)
[2021-09-16] MEDS: Vancomycin IV 1 GM in SODIUM CHLORIDE 0.9% 250ML 250 ML IV SCH ×2 (09:00→22:47)
[2021-09-16] MEDS: HYDROCODONE/APAP 10MG-325MG TAB PO PRN ×2 (10:03→21:00)
[2021-09-16] MEDS: ACETAMINOPHEN 325 MG TAB PO PRN (10:55)
[2021-09-17] VITALS (8 sets, daily range): BP systolic 144–159; BP diastolic 74–87
[2021-09-17] MEDS: PIPERACILLIN/TAZOBACTAM 3.375 GM in SODIUM CHLORIDE 0.9% 50ML 50 ML IV SCH ×3 (01:17→17:36)
[2021-09-17] MEDS: Vancomycin IV 1 GM in SODIUM CHLORIDE 0.9% 250ML 250 ML IV SCH ×2 (03:00→20:50)
[2021-09-17] MEDS: HYDROCODONE/APAP 10MG-325MG TAB PO PRN ×3 (03:00→21:22)
[2021-09-17] MEDS ORDERED: ROPINIROLE HC0.25 MG PO (10:29)
[2021-09-17] MEDS: ROPINIROLE HCL 0.25 MG TAB PO SCH (21:00)
[2021-09-18] VITALS: BP 162/78
[2021-09-18] MEDS: PIPERACILLIN/TAZOBACTAM 3.375 GM in SODIUM CHLORIDE 0.9% 50ML 50 ML IV SCH ×2 (02:00→09:22)
[2021-09-18 04:00] VITALS: BP 154/99
[2021-09-18] MEDS: HYDROCODONE/APAP 10MG-325MG TAB PO PRN (07:39)
[2021-09-18] MEDS: Vancomycin IV 1 GM in SODIUM CHLORIDE 0.9% 250ML 250 ML IV SCH (07:42)
[2021-09-18 08:01] VITALS: BP 158/91
[2021-09-18 08:26] VITALS: BP 158/91
[2021-09-18] MEDS: ROPINIROLE HCL 0.25 MG TAB PO SCH (09:20)
[2021-09-18] MEDS ORDERED: ONDANSETRON HCL 4 MG ORAL DISINTEGRATING TAB PO PRN (09:45)
[2021-09-18 12:20] VITALS: BP 165/79
== END 2021-09-18 14:00 | disposition home or self-care (01) | DRG 603 ==
LOC: ER 17:45 → ERHOLD 19:17 → MED/SURG2 20:45 → OBSVTOIN 09-16 13:03
PROC: 02HV33Z Insertion of Infusion Device into Superior Vena Cava, Percutaneous Approach (ICD-10-PCS; principal; 2021-09-16)
DX: L03.115 Cellulitis of right lower limb (principal); G89.29 Other chronic pain; S80.811A Abrasion, right lower leg, initial encounter; Y93.K9 Activity, other involving animal care; Z96.651 Presence of right artificial knee joint; Z20.822 Contact with and (suspected) exposure to COVID-19
CPT/HCPCS: 36415; 36568; 80053; 80202; 82948; 83605; 85025; 87040; 94799; 99284; G0378; J2543; J3370; J7050; U0002

== ENCOUNTER 2022-12-25 17:25 | Emergency (ER) | payer MEDICARE, OTHER ==
[~2022-12-25] VITALS: Ht 152.4 cm; Wt 60.8 kg
[~2022-12-25 17:25] MED LIST changes: +ASPIRIN81 MG PO; +CELEBREX200 MG PO; +HYDROCODON-ACE1 EAC9 PO
[2022-12-25 17:30] VITALS: O2SAT 100
[2022-12-25] MEDS ORDERED: AMOX TR-K CLV1 EAC2 PO (18:21)
== END 2022-12-25 18:43 | disposition home or self-care (01) ==
LOC: ER 17:37
DX: S80.812A Abrasion, left lower leg, initial encounter (principal); S80.811A Abrasion, right lower leg, initial encounter; R50.9 Fever, unspecified; W22.8XXA Striking against or struck by other objects, initial encounter; Y92.89 Other specified places as the place of occurrence of the external cause; I10 Essential (primary) hypertension; E78.5 Hyperlipidemia, unspecified; E03.9 Hypothyroidism, unspecified; D64.9 Anemia, unspecified; K21.9 Gastro-esophageal reflux disease without esophagitis
CPT/HCPCS: 99284

== ENCOUNTER 2023-12-23 22:57 | Inpatient (IN) | payer MEDICARE ==
[~2023-12-23] VITALS: Ht 154.9 cm; Wt 60.8 kg
[~2023-12-23 22:57] MED LIST changes: +AMOX TR-K CLV1 EAC2 PO; +GEMTESA75 MG PO; +PROTONIX20 MG PO
[2023-12-23 23:30] VITALS: TEMP 98.3
[2023-12-24] VITALS (8 sets, daily range): BP systolic 104–156; BP diastolic 69–89; PULSE 67–74; RESP 18–20; TEMP 97.8–98.6; O2SAT 94–100
[2023-12-24 00:08] LABS: BASOPHILS # (AUTO) 0.1 (0.0-0.1); BASOPHILS % 0.6 % (0.0-1.0); EOSINOPHILS # (AUTO) 0.1 (0.0-0.4); HEMATOCRIT 43.1 % (34.2-44.1); HEMOGLOBIN 15.1 g/dL (12.0-16.0); LYMPHOCYTES % 31.4 % (18.0-39.1); MEAN CORPUSCULAR HEMOGLOBIN 31.1 pg (28-32); MEAN CORPUSCULAR VOLUME 88.9 fL (81-99); MONOCYTES # (AUTO) 0.8 (0.2-0.8); MONOCYTES % 8.8 % (4.4-11.3); NEUTROPHILS # (AUTO) 5.5 (2.1-6.9); NEUTROPHILS % 57.8 % (38.7-80.0); PLATELET COUNT 221 x10e3/uL (140-360); RED BLOOD COUNT 4.85 x10e6/uL (3.6-5.1); WHITE BLOOD COUNT 9.53 x10e3/uL (4.8-10.8)
[2023-12-24 00:40] LABS: ALBUMIN 4.5 g/dL (3.5-5.0); ALBUMIN/GLOBULIN RATIO 1.6 (0.8-2.0); ANION GAP 18.4 mmol/L (8-16); BILIRUBIN,TOTAL 0.6 mg/dL (0.2-1.2); CALCIUM 9.4 mg/dL (8.4-10.2); CREATININE, SERUM 1.52 mg/dL (0.57-1.11); TOTAL PROTEIN 7.3 g/dL (6.5-8.1)
[2023-12-24 00:59] LABS: POTASSIUM 3.4 mmol/L (3.5-5.1)
[2023-12-24] MEDS: SODIUM CHLORIDE 0.9% 1000ML 1,000 ML IV ONE (04:15)
[2023-12-24 06:52] LABS: CLARITY,URINE SL CLOUDY (CLEAR); COLOR,URINE YELLOW (YELLOW)
[2023-12-24 06:53] LABS: BACTERIA,URINE MODERATE /HPF; BILIRUBIN,URINE NEGATIVE (NEGATIVE); EPITHELIAL CELLS,URINE FEW /LPF; GLUCOSE, URINE NEGATIVE (NEGATIVE); KETONES,URINE 1+ (NEGATIVE); LEUKOCYTE ESTERASE ,URINE NEGATIVE (NEGATIVE); NITRITE,URINE NEGATIVE (NEGATIVE); PH,URINE 6 (5 - 7); PROTEIN,URINE DIPSTICK NEGATIVE (NEGATIVE); RBC,URINE 0-5 /HPF (0-5); URINE UROBILINOGEN 0.2 mg/dL (0.2 - 1)
[2023-12-24] MEDS: ONDANSETRON HCL INJ 2MG/ML 2ML 2 MG/ML VIAL IV PRN (09:30)
[2023-12-24] MEDS: Morphine 4mg INJECTION 4 MG/ML INJ IV PRN (09:30)
[2023-12-24] MEDS ORDERED: AZOR 10-40 MG1 EACH PO (12:36)
[2023-12-24] MEDS ORDERED: LEVOTHYROXINE125 MCG PO (12:36)
[2023-12-24] MEDS ORDERED: ATIVAN0.5 MG PO (12:36)
[2023-12-24] MEDS ORDERED: MECLIZINE HCL12.5 MG PO (12:37)
[2023-12-24] MEDS ORDERED: CARAFATE1 GM PO (12:37)
[2023-12-24] MEDS ORDERED: CYMBALTA30 MG PO (12:37)
[2023-12-24] MEDS ORDERED: [UNRECOGNIZED DRUG - OTHER] PO (12:39)
[2023-12-24] MEDS ORDERED: METOPROLOL TARTRATE INJ 1 MG/ML VIAL IV PRN (13:45)
[2023-12-24] MEDS ORDERED: ALBUTEROL/IPRATROPIUM 3 ML NEB NEB PRN (13:45)
[2023-12-24] MEDS ORDERED: SIMETHICONE 80 MG CHEW PO PRN (13:45)
[2023-12-24] MEDS ORDERED: MECLIZINE HCL 12.5 MG TAB PO PRN (13:45)
[2023-12-24] MEDS: SODIUM CHLORIDE 0.45% 1,000 ML IV SCH (16:05)
[2023-12-24] MEDS: DULOXETINE HCL 30 MG DELAYED RELEASE PO SCH (16:07)
[2023-12-24] MEDS: SUCRALFATE 1 GM TAB PO SCH (16:07)
[2023-12-24] MEDS: FAMOTIDINE 20 MG/2 ML VIAL IV SCH (16:07)
[2023-12-24] MEDS: PANTOPRAZOLE SODIUM 20 MG TABLET.DR PO SCH (16:07)
[2023-12-24] MEDS: ROPINIROLE HCL 0.25 MG TAB PO SCH (16:08)
[2023-12-24] MEDS: SIMVASTATIN 40 MG TAB PO SCH (20:30)
[2023-12-25] VITALS (9 sets, daily range): BP systolic 117–144; BP diastolic 67–78; PULSE 61–85; RESP 16–18; TEMP 97.6–99.5; O2SAT 93–100
[2023-12-25] MEDS: METOCLOPRAMIDE HCL 10 MG/2ML VIAL IV STA (02:40)
[2023-12-25] MEDS: DICYCLOMINE HCL 10 MG CAP PO STA (02:59)
[2023-12-25] MEDS: METOCLOPRAMIDE HCL 10 MG/2ML VIAL IV SCH (05:24)
[2023-12-25] MEDS: LEVOTHYROXINE SODIUM 125 MCG TAB PO SCH (05:24)
[2023-12-25 07:34] LABS: BASOPHILS # (AUTO) 0.1 (0.0-0.1); EOSINOPHILS # (AUTO) 0.2 (0.0-0.4); EOSINOPHILS % 3.1 % (0.0-6.0); HEMATOCRIT 35.6 % (34.2-44.1); HEMOGLOBIN 12.3 g/dL (12.0-16.0); LYMPHOCYTES # (AUTO) 1.7 (1.0-3.2); LYMPHOCYTES % 24.4 % (18.0-39.1); MEAN CORPUSCULAR HGB CONC 34.6 g/dL (31-35); MEAN CORPUSCULAR VOLUME 89.7 fL (81-99); MONOCYTES # (AUTO) 0.6 (0.2-0.8); NEUTROPHILS # (AUTO) 4.3 (2.1-6.9); NEUTROPHILS % 63.1 % (38.7-80.0); PLATELET COUNT 190 x10e3/uL (140-360); RED BLOOD COUNT 3.97 x10e6/uL (3.6-5.1); WHITE BLOOD COUNT 6.88 x10e3/uL (4.8-10.8)
[2023-12-25 08:05] LABS: ALBUMIN 3.2 g/dL (3.5-5.0); ALBUMIN/GLOBULIN RATIO 1.4 (0.8-2.0); BILIRUBIN,TOTAL 0.6 mg/dL (0.2-1.2); CALCIUM 8.6 mg/dL (8.4-10.2); CREATININE, SERUM 0.75 mg/dL (0.57-1.11); POTASSIUM 3.7 mmol/L (3.5-5.1); TOTAL PROTEIN 5.5 g/dL (6.5-8.1)
[2023-12-25 08:31] LABS: ANION GAP 15.7 mmol/L (8-16)
[2023-12-25] MEDS: DICYCLOMINE HCL 20 MG TAB PO SCH (09:39)
[2023-12-26] VITALS (10 sets, daily range): BP systolic 133–160; BP diastolic 73–92; PULSE 64–82; RESP 16–19; TEMP 97.7–98.4; O2SAT 95–100
[2023-12-26 05:51] LABS: ANION GAP 11.3 mmol/L (8-16); CALCIUM 8.5 mg/dL (8.4-10.2); CREATININE, SERUM 0.77 mg/dL (0.57-1.11)
[2023-12-26 05:52] LABS: POTASSIUM 3.3 mmol/L (3.5-5.1)
[2023-12-26 07:10] LABS: OCCULT BLOOD STOOL NEGATIVE (NEGATIVE)
[2023-12-26] MEDS: ACETAMINOPHEN 325 MG TAB PO PRN (22:33)
[2023-12-27] VITALS (10 sets, daily range): BP systolic 142–165; BP diastolic 76–93; PULSE 64–78; RESP 18–21; TEMP 98–98.4; O2SAT 96–100
[2023-12-27] MEDS: PANTOPRAZOLE SOD 40 MG TABEC PO ONE (21:36)
[2023-12-28] VITALS: BP 140/79; PULSE 66; RESP 18; TEMP 98.6; O2SAT 95
[2023-12-28 04:00] VITALS: BP 149/82; PULSE 73; RESP 18; TEMP 98.3; O2SAT 98
[2023-12-28 08:17] VITALS: PULSE 73; RESP 18; O2SAT 98
[2023-12-28] MEDS: PANTOPRAZOLE SOD 40 MG TABEC PO SCH (08:29)
[2023-12-28 08:30] VITALS: BP 159/93; PULSE 70; RESP 17; TEMP 98.4; O2SAT 98
[2023-12-28 09:07] VITALS: BP 159/93; PULSE 70; RESP 17; TEMP 98.4; O2SAT 98
[2023-12-28 12:38] VITALS: BP 151/100; PULSE 102; RESP 18; TEMP 98.6; O2SAT 98
== END 2023-12-28 14:40 | disposition home or self-care (01) | DRG 438 ==
LOC: ER 23:02 → ERHOLD 12-24 03:17 → MED/SURG3 12-24 04:43 → OBSVTOIN 12-24 13:46
PROVIDERS: ADMIT Internal Medicine; ATTEND Internal Medicine
DX: K85.90 Acute pancreatitis without necrosis or infection, unspecified (principal); U07.1 COVID-19; N17.9 Acute kidney failure, unspecified; N39.0 Urinary tract infection, site not specified; R06.02 Shortness of breath; K21.9 Gastro-esophageal reflux disease without esophagitis; K44.9 Diaphragmatic hernia without obstruction or gangrene; E03.9 Hypothyroidism, unspecified; D64.9 Anemia, unspecified; H91.90 Unspecified hearing loss, unspecified ear; Z79.899 Other long term (current) drug therapy; Z79.82 Long term (current) use of aspirin
CPT/HCPCS: 36415; 74176; 80048; 80053; 80061; 81001; 82270; 83690; 85025; 87086; 94799; 99284; J0696; J2270; J2405; J2470; J2765; J7030; U0002

== ENCOUNTER → 2024-03-08 | Day surgery (SDC) | payer MEDICARE ==
[~2024-03-08] MED LIST changes: +ATIVAN0.5 MG PO; +AZOR 10-40 MG1 EACH PO; +CARAFATE1 GM PO; +CYMBALTA30 MG PO; +FENTANYL CITRATE/PF 100MCG/2 ML INJ ONE; +LEVOTHYROXINE125 MCG PO; +LIDOCAINE HCL 2% LOCAL INJ 5 ML SDV VIAL INJ ONE; +METOCLOPRAMIDE HCL 10 MG/2ML VIAL ONE; +PROPOFOL IV EMULSION 10 MG/ML 20 ML VIAL ONE; +[UNRECOGNIZED DRUG - OTHER] PO
[2024-03-08] MEDS: LACTATED RINGER'S 1,000 ML ONE (06:53)
[2024-03-08 07:24] LABS: BASOPHILS # (AUTO) 0.1 (0.0-0.1); BASOPHILS % 1.2 % (0.0-1.0); EOSINOPHILS # (AUTO) 0.1 (0.0-0.4); HEMATOCRIT 40.7 % (34.2-44.1); HEMOGLOBIN 13.5 g/dL (12.0-16.0); LYMPHOCYTES # (AUTO) 1.1 (1.0-3.2); LYMPHOCYTES % 13.5 % (18.0-39.1); MEAN CORPUSCULAR HEMOGLOBIN 31.9 pg (28-32); MEAN CORPUSCULAR HGB CONC 33.2 g/dL (31-35); MEAN CORPUSCULAR VOLUME 96.2 fL (81-99); MONOCYTES # (AUTO) 0.8 (0.2-0.8); MONOCYTES % 9.3 % (4.4-11.3); NEUTROPHILS % 74.8 % (38.7-80.0); PLATELET COUNT 200 x10e3/uL (140-360); RED BLOOD COUNT 4.23 x10e6/uL (3.6-5.1); RED CELL DISTRIBUTION WIDTH 13.7 % (11.7-14.4); WHITE BLOOD COUNT 8.05 x10e3/uL (4.8-10.8)
[2024-03-08 08:29] VITALS: TEMP 97.5
[2024-03-08 08:50] VITALS: BP 136/80; PULSE 70; RESP 18; O2SAT 99
[2024-03-08] MEDS: DONNATAL/LIDOCAINE/MAALOX 30 ML SUSP PO ONE (09:00)
[2024-03-14 07:22] LABS: ENDOMYSIAL ANTIBODIES, IGA Negative (Negative)
[2024-03-14 08:29] LABS: IMMUNOGLOBULIN A 117 mg/dL (64-422); TISSUE TRANSGLUTAMINASE IGA AB <2 U/mL (0-3)
== END | disposition home or self-care (01) ==
LOC: OR 06:22
PROVIDERS: ATTEND Internal Medicine Gastroenterology
DX: K29.70 Gastritis, unspecified, without bleeding (principal); K22.89 Other specified disease of esophagus; K21.9 Gastro-esophageal reflux disease without esophagitis; K28.9 Gastrojejunal ulcer, unspecified as acute or chronic, without hemorrhage or perforation; R63.4 Abnormal weight loss; Z98.890 Other specified postprocedural states; E73.9 Lactose intolerance, unspecified; G47.33 Obstructive sleep apnea (adult) (pediatric); E78.5 Hyperlipidemia, unspecified; I10 Essential (primary) hypertension; E03.9 Hypothyroidism, unspecified; J44.9 Chronic obstructive pulmonary disease, unspecified; G89.29 Other chronic pain; G25.81 Restless legs syndrome; F41.9 Anxiety disorder, unspecified; F32.A Depression, unspecified; Z88.8 Allergy status to other drugs, medicaments and biological substances; Z88.6 Allergy status to analgesic agent; Z88.1 Allergy status to other antibiotic agents; Z91.041 Radiographic dye allergy status; Z79.82 Long term (current) use of aspirin; Z79.1 Long term (current) use of non-steroidal anti-inflammatories (NSAID); Z79.899 Other long term (current) drug therapy
CPT/HCPCS: 36415; 43239; 43450; 82784; 83516; 85025; 86256; 93005; J2003; J2470; J2704; J2765; J3010; J7121